=== PATIENT | female | born 1995 | race Caucasian/White ===

== ENCOUNTER 2019-02-20 20:55 | Emergency (ER) | payer BC, OTHER ==
[~2019-02-20] VITALS: Ht 172.7 cm; Wt 97.1 kg
[~2019-02-20 20:55] MED LIST: MACRODANTIN100 M1 PO
[2019-02-20] MEDS ORDERED: NAPROSYN EC375 MG PO (21:52)
[2019-02-20] MEDS ORDERED: CYCLOBENZAPRINE5 M3 PO (21:52)
== END 2019-02-20 22:15 | disposition home or self-care (01) ==
LOC: ED 20:55
DX: M94.0 Chondrocostal junction syndrome [Tietze] (principal); F17.200 Nicotine dependence, unspecified, uncomplicated; Z79.2 Long term (current) use of antibiotics